=== PATIENT | female | born 2000 | race African-American/Black ===

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

== ENCOUNTER 2020-12-13 16:14 | Emergency (ER) | payer OTHER ==
[2020-12-13 16:38] VITALS: BP 113/79; PULSE 75; RESP 16; TEMP 99.9
[2020-12-13] MEDS ORDERED: KETOROLAC 15 MG/ML 1 ML VIAL IM STA (17:51)
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
== END 2020-12-13 18:22 | disposition home or self-care (01) ==
LOC: EC 16:14
DX: S46.811A Strain of other muscles, fascia and tendons at shoulder and upper arm level, right arm, initial encounter (principal); V49.9XXA Car occupant (driver) (passenger) injured in unspecified traffic accident, initial encounter
CPT/HCPCS: 99283; 96372; J1885

== ENCOUNTER 2024-12-13 22:25 | Emergency (ER) | payer BC, OTHER ==
--- NOTE | 2024-12-13 22:39 | ED ---
General Adult HPI - General Source: patient, RN notes reviewed Mode of arrival: ambulatory Limitations: no limitations <Arti Petty - Last Filed: 12/13/24 22:39> - General Source: patient, RN notes reviewed <Carmela Shafer - Last Filed: 12/14/24 02:19> - General Stated complaint: Anxiety,SOB Time Seen by Provider: 12/13/24 22:39 - History of Present Illness Initial comments: Quick note: 24-year-old female presented to ER for evaluation of weakness and shortness of breath. Patient states when arriving to work today she felt weak. She states after starting to work she started to feel short of breath and having an anxiety attack. Denies chest pain (Arti Petty) 24-year-old female with history of anxiety presenting to the ER for shortness of breath x 3 hours. 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 States she went to the bathroom and was crying and felt as though she could not breathe. Patient did splash cold water on her face which seemed to help. Patient does have a history of panic attacks but felt as though this one was the worst. States she is feeling much better now. Denies chest pain. She is currently on Augmentin for cough for the last month. Denies . (Carmela Shafer) - Related Data Previous Rx's Medication Instructions Recorded Ibuprofen [Motrin] 600 mg PO Q8HR PRN #30 tab 12/13/20 Allergies Allergy/AdvReac Type Severity Reaction Status Date / Time No Known Allergies Allergy Verified 12/13/24 23:21 Review of Systems ROS Other: All systems not noted in ROS Statement are negative. <Arti Petty - Last Filed: 12/13/24 22:39> ROS Other: All systems not noted in ROS Statement are negative. <Carmela Shafer - Last Filed: 12/14/24 02:19> ROS Statement: Those systems with pertinent positive or pertinent negative responses have been documented in the HPI. Past Medical History Past Medical History: No Reported History History of Any Multi-Drug Resistant Organisms: None Reported Past Surgical History: No Surgical Hx Reported Past Psychological History: No Psychological Hx Reported Smoking Status: Never smoker Past Alcohol Use History: None Reported Past Drug Use History: None Reported <Neeru Pettynn - Last Filed: 12/13/24 22:39> General Exam <KeshavwangArti - Last Filed: 12/13/24 22:39> General appearance: alert, in no apparent distress Head exam: Present: atraumatic, normocephalic, normal inspection Eye exam: Present: normal appearance, PERRL, EOMI. Absent: scleral icterus, conjunctival injection, periorbital swelling Respiratory exam: Present: normal lung sounds bilaterally. Absent: respiratory distress, wheezes, rales, rhonchi, stridor Cardiovascular Exam: Present: regular rate, normal rhythm, normal heart sounds. Absent: systolic murmur, diastolic murmur, rubs, gallop, clicks GI/Abdominal exam: Present: soft, normal bowel sounds. Absent: distended, tenderness, guarding, rebound, rigid Neurological exam: Present: alert, oriented X3 Psychiatric exam: Present: normal affect, normal mood Skin exam: Present: warm, dry, intact, normal color. Absent: rash <Carmela Shafer - Last Filed: 12/14/24 02:19> - General Exam Comments Initial Comments: Visual Physical Exam Vital signs reviewed General: Well-appearing, nontoxic, no acute distress. Tearful Head: Normocephalic, atraumatic Eyes: PERRLA, EOMI ENT: Airway patent Chest: Nonlabored breathing Skin: No visual rash, normal skin tone Neuro: Alert and oriented 3 Musculoskeletal: No gross abnormalities (Arti Petty) Course Vital Signs 12/13/24 23:18 Temperature 97.8 F Pulse Rate 92 Respiratory 20 Rate Blood Pressure 129/79 O2 Sat by Pulse 100 Oximetry EKG Findings - EKG Results: EKG: interpreted by ERMD (EKG reveals normal sinus rhythm with no acute ST changes. Ventricular rate 67 bpm, LA interval 136, QRS duration 87, QT/QTc 366/382) <Carmela Shafer - Last Filed: 12/14/24 02:19> Medical Decision Making <JovannyArti - Last Filed: 12/13/24 22:39> - Lab Data Result diagrams: 12/14/24 00:07 12/14/24 00:07 <Carmela Shafer - Last Filed: 12/14/24 02:19> - Medical Decision Making I performed the quick note portion of this chart. Electronically signed by Arti Petty PA-C (Arti Petty) Was pt. sent in by a medical professional or institution (BRENDEN Chase, EMERGENCY VETERINARIAN, urgent care, hospital, or [facility]...) When possible be specific @ -No Did you speak to anyone other than the patient for history (EMS, parent, family, police, friend...)? What history was obtained from this source @ -No Did you review nursing and triage notes (agree or disagree)? Why? @ -I reviewed and agree with nursing and triage notes Were old charts reviewed (outside hosp., previous admission, EMS record, old EKG, old radiological studies, urgent care reports/EKG's, [facility] records)? Report findings @ -No old charts were reviewed Differential Diagnosis (chest pain, altered mental status, abdominal pain women, abdominal pain men, vaginal bleeding, weakness, fever, dyspnea, syncope, headache, dizziness, GI bleed, back pain, seizure, CVA, palpatations, mental health, musculoskeletal)? @ -Differential Dyspnea: Coronary syndrome, arrhythmia, tamponade, asthma, COPD, pulmonary embolism, pneumonia, pneumothorax, pulmonary effusion, anaphylaxis, diabetic ketoacidosis, flailed chest, pulmonary contusion, diaphragmatic rupture, anemia, n euromuscular, this is not meant to be an all-inclusive list. EKG interpreted by me (3pts min.). @ -As above X-rays interpreted by me (1pt min.). @ -Chest x-ray reveals no acute process CT interpreted by me (1pt min.). @ -None done U/S interpreted by me (1pt. min.). @ -None done What testing was considered but not performed or refused? (CT, X-rays, U/S, labs)? Why? @ -None What meds were considered but not given or refused? Why? @ -None Did you discuss the management of the patient with other professionals (professionals i.e. BRENDEN Chase, EMERGENCY VETERINARIAN, lab, RT, psych nurse, social service director, filling station laborer, teacher, adult probation officer, lining caser)? Give summary @ -No Was smoking cessation discussed for >3mins.? @ -No Was critical care preformed (if so, how long)? @ -No Were there social determinants of health that impacted care today? How? (Homelessness, low income, unemployed, alcoholism, drug addiction, transpo rtation, low edu. Level, literacy, decrease access to med. care, senior living, rehab)? @ -No Was there de-escalation of care discussed even if they declined (Discuss DNR or withdrawal of care, Hospice)? DNR status @ -No What co-morbidities impacted this encounter? (DM, HTN, Smoking, COPD, CAD, Cancer, CVA, ARF, Chemo, Hep., AIDS, mental health diagnosis, sleep apnea, morbid obesity)? @ -None Was patient admitted / discharged? Hospital course, mention meds given and route, prescriptions, significant lab abnormalities, going to OR and other pertinent info. @ -discharge. 24-year-old female presenting for episode of shortness of breath. States symptoms have improved. Denies chest pain. Patient is well-appearing, no acute distress. EKG reveals normal sinus rhythm with no acute ST changes. Chest x-ray reveals no acute process. Lab work remarkable for mild leukocytosis of 12 otherwise unremarkable. Urine negative. Upon reevaluation, patient is resting comfortably and remains asymptomatic. Patient can be safely discharged home with appropriate follow-up care and return precautions. Case was discussed with my ED attending Dr. Hanson. Diagnosed new problem with uncertain prognosis? @ -No Drug Therapy requiring intensive monitoring for toxicity (Heparin, Nitro, Insulin, Cardizem)? @ -No Were any procedures done? @ -No Diagnosis/symptom? @ -Anxiety Acute, or Chronic, or Acute on Chronic? @ -Acute Uncomplicated (without systemic symptoms) or Complicated (systemic symptoms)? @ -Complicated Side effects of treatment? @ -No Exacerbation, Progression, or Severe Exacerbation? @ -No Poses a threat to life or bodily function? How? (Chest pain, [place], [place], pneumonia, PE, COPD, DKA, ARF, appy, cholecystitis, CVA, Diverticulitis, Homicidal, Suicidal, threat to staff... and all critical care pts) @ -Not at this time (Carmela Shafer) - Lab Data Lab Results 12/14/24 12/14/24 12/14/24 Range/Units 00:07 00:07 00:41 WBC 12.05 H (4.50-10.00) 10*3/uL RBC 4.39 (4.10-5.20) 10*6/uL Hgb 12.6 (12.0-15.0) g/dL Hct 38.7 (37.2-46.3) % MCV 88.2 (80.0-97.0) fL MCH 28.7 (27.0-32.0) pg MCHC 32.6 (32.0-37.0) g/dL Plt Count 245 (140-440) 10*3/uL MPV 12.4 H (9.5-12.2) fL Immature Gran % (Auto) 0.3 % Neutrophils % 80.7 % Lymphocytes % 10.6 % Monocytes % 7.4 % Eosinophils % 0.8 % Basophils % 0.2 % Immature Gran # 0.04 (0.00-0.04) 10*3/uL Neutrophils # 9.71 H (1.80-7.70) 10*3/uL Lymphocytes # 1.28 (0.90-5.00) 10*3/uL Monocytes # 0.89 (0.20-1.00) 10*3/uL Eosinophils # 0.10 (0.04-0.35) 10*3/uL Basophils # 0.03 (0.00-0.10) 10*3/uL Sodium 135 L (137-145) mmol/L Potassium 4.4 (3.5-5.1) mmol/L Chloride 102 (98-107) mmol/L Carbon Dioxide 20 L (22-30) mmol/L Anion Gap 13 mmol/L BUN 11 (7-17) mg/dL Creatinine 0.78 (0.52-1.04) mg/dL Est GFR (CKD-EPI)AfAm >90 (>60 ml/min/1.73 sqM) Est GFR (CKD-EPI)NonAf >90 (>60 ml/min/1.73 sqM) Glucose 91 (74-99) mg/dL Calcium 9.6 (8.4-10.2) mg/dL Total Bilirubin 0.5 (0.2-1.3) mg/dL AST 25 (14-36) U/L ALT 14 (4-34) U/L Alkaline Phosphatase 49 (38-126) U/L Total Protein 7.7 (6.3-8.2) g/dL Albumin 4.5 (3.5-5.0) g/dL Urine Color Yellow Urine Appearance Clear (Clear) Urine pH 6.0 (5.0-8.0) Ur Specific Fowler 1.024 (1.001-1.035) Urine Protein Negative (Negative) Urine Glucose (UA) Negative (Negative) Urine Ketones 1+ H (Negative) Urine Blood Negative (Negative) Urine Nitrite Negative (Negative) Urine Bilirubin Negative (Negative) Urine Urobilinogen <2.0 (<2.0) mg/dL Ur Leukocyte Esterase Negative (Negative) Urine HCG, Qual (Not Detectd) 12/14/24 Range/Units 00:41 WBC (4.50-10.00) 10*3/uL RBC (4.10-5.20) 10*6/uL Hgb (12.0-15.0) g/dL Hct (37.2-46.3) % MCV (80.0-97.0) fL MCH (27.0-32.0) pg MCHC (32.0-37.0) g/dL Plt Count (140-440) 10*3/uL MPV (9.5-12.2) fL Immature Gran % (Auto) % Neutrophils % % Lymphocytes % % Monocytes % % Eosinophils % % Basophils % % Immature Gran # (0.00-0.04) 10*3/uL Neutrophils # (1.80-7.70) 10*3/uL Lymphocytes # (0.90-5.00) 10*3/uL Monocytes # (0.20-1.00) 10*3/uL Eosinophils # (0.04-0.35) 10*3/uL Basophils # (0.00-0.10) 10*3/uL Sodium (137-145) mmol/L Potassium (3.5-5.1) mmol/L Chloride (98-107) mmol/L Carbon Dioxide (22-30) mmol/L Anion Gap mmol/L BUN (7-17) mg/dL Creatinine (0.52-1.04) mg/dL Est GFR (CKD-EPI)AfAm (>60 ml/min/1.73 sqM) Est GFR (CKD-EPI)NonAf (>60 ml/min/1.73 sqM) Glucose (74-99) mg/dL Calcium (8.4-10.2) mg/dL Total Bilirubin (0.2-1.3) mg/dL AST (14-36) U/L ALT (4-34) U/L Alkaline Phosphatase (38-126) U/L Total Protein (6.3-8.2) g/dL Albumin (3.5-5.0) g/dL Urine Color Urine Appearance (Clear) Urine pH (5.0-8.0) Ur Specific Fowler (1.001-1.035) Urine Protein (Negative) Urine Glucose (UA) (Negative) Urine Ketones (Negative) Urine Blood (Negative) Urine Nitrite (Negative) Urine Bilirubin (Negative) Urine Urobilinogen (<2.0) mg/dL Ur Leukocyte Esterase (Negative) Urine HCG, Qual Not Detected (Not Detectd) Disposition <Arti Petty - Last Filed: 12/13/24 22:39> Is patient prescribed a controlled substance at d/c from ED?: No Time of Disposition: 02:19 <Carmela Shafer - Last Filed: 12/14/24 02:19> Clinical Impression: Anxiety attack Disposition: HOME SELF-CARE Condition: Stable Instructions (If sedation given, give patient instructions): Anxiety (ED) Additional Instructions: Please return to the Emergency Department if symptoms worsen or any other adrien rns. Referrals: Gee Kc MD [Primary Care Provider] - 1-2 days
[2024-12-13 23:21] VITALS: TEMP 97.8
[2024-12-14 00:52] LABS: Basophils # (A) 0.03 10*3/uL (0.00-0.10); Basophils % (A) 0.2 %; Eosinophils % (A) 0.8 %; HCT 38.7 % (37.2-46.3); HGB 12.6 g/dL (12.0-15.0); Lymphocytes # (A) 1.28 10*3/uL (0.90-5.00); Lymphocytes % (A) 10.6 %; MCH 28.7 pg (27.0-32.0); MCHC 32.6 g/dL (32.0-37.0); MCV 88.2 fL (80.0-97.0); Mean Platelet Volume 12.4 fL (9.5-12.2); Monocytes # (A) 0.89 10*3/uL (0.20-1.00); Monocytes % (A) 7.4 %; Neutrophils # (A) 9.71 10*3/uL (1.80-7.70); Neutrophils % (A) 80.7 %; Platelet Count 245 10*3/uL (140-440); RBC 4.39 10*6/uL (4.10-5.20); RDW 14.1 % (11.5-14.5); WBC 12.05 10*3/uL (4.50-10.00)
[2024-12-14 01:06] LABS: ALT 14 U/L (4-34); AST 25 U/L (14-36); African American GFR (CKD) >90 (>60 ml/min/1.73 sqM); Albumin 4.5 g/dL (3.5-5.0); Alkaline Phosphatase 49 U/L (38-126); Anion Gap 13 mmol/L; Blood Urea Nitrogen 11 mg/dL (7-17); Calcium 9.6 mg/dL (8.4-10.2); Carbon Dioxide 20 mmol/L (22-30); Chloride 102 mmol/L (98-107); Glucose 91 mg/dL (74-99); Non-African American GFR(CKD) >90 (>60 ml/min/1.73 sqM); Potassium 4.4 mmol/L (3.5-5.1); Sodium 135 mmol/L (137-145); Total Bilirubin 0.5 mg/dL (0.2-1.3); Total Protein 7.7 g/dL (6.3-8.2)
[2024-12-14 01:06] LABS: Appearance,Urine Clear (Clear); Bilirubin,Urine Negative (Negative); Blood,Urine Negative (Negative); Color,Urine Yellow; Glucose,Urine (UA) Negative (Negative); Ketones,Urine 1+ (Negative); Leukocyte Esterase,Urine Negative (Negative); Nitrite,Urine Negative (Negative); Protein,Urine Negative (Negative); Specific Gravity,Urine 1.024 (1.001-1.035); Urobilinogen,Urine <2.0 mg/dL (<2.0)
--- NOTE | 2024-12-14 02:54 | XR ---
EXAM: XR Chest, 2 Views CLINICAL HISTORY: ITS.REASON XR Reason: Shortness of breath TECHNIQUE: Frontal and lateral views of the chest. COMPARISON: No relevant prior studies available. FINDINGS: Lungs: No consolidation or mass. Pleural space: No effusion. Heart: No cardiomegaly. Bones/joints: No acute findings. IMPRESSION: No acute cardiopulmonary process.
[2024-12-14 03:43] VITALS: BP 126/80; PULSE 93; RESP 18
== END 2024-12-14 03:30 | disposition home or self-care (01) ==
LOC: EC 22:25
DX: F41.9 Anxiety disorder, unspecified (principal)
CPT/HCPCS: 36415; 71046; 80053; 81003; 81025; 85025; 93005; 99285